=== PATIENT | female | born 1995 | race Caucasian/White ===

== ENCOUNTER 2018-01-03 21:03 | Inpatient (IN) ==
[2018-01-03 21:30] LABS: Bilirubin,Urine Negative (Negative); Blood,Urine Large (Negative); Clarity,Urine Cloudy (Clear); Color,Urine Yellow (Yellow); Glucose,Urine (UA) Normal (Normal); Ketones,Urine Negative (Negative); Leukocyte Esterase,Urine Large (Negative); Nitrite,Urine Positive (Negative); Protein,Urine 30 mg/dL (Neg-Trace); Urobilinogen,Urine Normal (Normal)
[2018-01-03 21:32] LABS: Bacteria,Urine Many per hpf (None-Few); Hyaline Casts,Urine Few per lpf (None-Few); Squamous Epithelial Cell,Urine Many per lpf (None-Few); WBC,Urine TNTC per hpf (0-3)
[2018-01-03 21:47] LABS: Mucus,Urine Moderate (Few); RBC,Urine 50-100 per hpf (0-3); Yeast,Urine Moderate per hpf (None Seen)
[2018-01-03] MEDS ORDERED: 0.9 % Sodium Chloride 1,000 ML IVC ONE (22:05)
[2018-01-03 22:13] LABS: Basophils % 0.3 %; Eosinophils % 0.1 %; Hematocrit 40.3 % (35.3-44.9); Hemoglobin 13.2 g/dL (11.5-15.4); Immature Granulocytes % 0.4 % (0-4); Lymphocytes # 0.9 K/mcL (0.6-4.6); Lymphocytes % 6.3 %; Mean Corpuscular HGB Conc 32.8 g/dL (31.6-35.5); Mean Corpuscular Hemoglobin 28.3 pg (28.0-33.3); Mean Corpuscular Volume 86.5 fL (83.0-100.0); Mean Platelet Volume 9.5 fL (9.4-12.4); Monocytes # 1.2 K/mcL (0.0-1.3); Monocytes % 8.3 %; Neutrophils # 11.8 K/mcL (1.6-8.9); Platelet Count 288 K/mcL (140-400); Red Blood Count 4.66 M/mcL (3.82-4.97); Red Cell Distribution Width 12.7 % (11.5-14.5); Segmented Neutrophils % 84.6 %
--- NOTE | 2018-01-03 22:25 | Emergency Department Note ---
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 She also has history of UTIs and thought that it was a bladder infection; therefore , she did not seek medical advice. She comes in today due to worsening pain, fever, nausea without vomiting, chills. Pain is sharp in nature and radiates to the back. She describes it as "throbbing". Last dose of ibuprofen she took was last night and she woke up feeling feverish. Current pain is 10/10, constant. Admits to dizziness due to pain. Denies CP, SOB, diarrhea, constipation. LMP started today. +dysuria, hematuria. Pt Subjective Complaint: Left sided flank pain Pain Scale: 10 - Related Data Previous Rx's Medication Instructions Recorded Hydrocodone/Acetaminophen [[place] 1 - 2 each PO Q6H PRN #15 tablet 08/17/15 5-325 Tablet] Ibuprofen [Motrin] 600 mg PO Q8HR PRN #20 tab 08/17/15 Nitrofurantoin (BID) [Macrobid] 100 mg PO BID #7 capsule 09/12/15 Ciprofloxacin HCl [Cipro] 500 mg PO BID #14 tab 10/04/15 Acetaminophen [Tylenol] 650 mg PO Q6HR #20 tablet 11/05/15 Albuterol Sulfate [Albuterol 1 puff IH Q6HR PRN #1 hfa.aer.ad 03/27/16 Inhaler] Azithromycin [Azithromycin 6-Tab 250 mg PO DAILY #6 tab 03/27/16 Pack] Loratadine/Pseudophed (12 HR) 1 each PO BID #10 tab.er.12h 03/27/16 [Claritin D (12HR)] predniSONE [Prednisone] 40 mg PO DAILY 5 Days tablet 03/27/16 Ciprofloxacin [Cipro] 500 mg PO BID 7 Days tablet 04/23/16 Hydrocodone/Acetaminophen [[place] 1 tab PO Q6H PRN #8 tab 04/23/16 5-325 Tablet] Albuterol Sulfate [Albuterol 2 puff IH Q6HR PRN #1 hfa.aer.ad 07/06/16 Inhaler] predniSONE [Prednisone] 50 mg PO DAILY #4 tablet 07/06/16 Ibuprofen 800 mg PO Q8H #30 tablet 07/16/16 Ondansetron ODT [Zofran ODT] 4 mg PO Q6HR #20 tab.rapdis 07/16/16 Naproxen [Naprosyn] 500 mg PO BID PRN #20 tablet 08/06/16 Ibuprofen [Motrin] 800 mg PO Q8HR PRN #20 tablet 08/24/16 Ibuprofen 800 mg PO Q8H PRN #15 tablet 10/30/16 Ciprofloxacin [Cipro] 500 mg PO BID 7 Days tablet 01/13/17 Ondansetron ODT [Zofran ODT] 4 mg SL Q6HR #10 tab.rapdis 01/13/17 Phenazopyridine [Pyridium] 100 mg PO TID 2 Days tablet 01/13/17 Azithromycin [Azithromycin 6-Tab 250 mg PO PER PKG DI #6 tab 02/12/17 Pack] Loratadine/Pseudophed (12 HR) 1 each PO ONCE #5 tab.er.12h 02/12/17 [Claritin D (12HR)] Ibuprofen [Motrin] 600 mg PO Q8HR PRN #20 tab 07/24/17 Allergies Allergy/AdvReac Type Severity Reaction Status Date / Time cephalexin [From Keflex] Allergy Hives Verified 01/03/18 21:09 Constitutional: Reports: as per HPI. Denies: fever, chills, weakness, weight change Eyes: Reports: as per HPI. Denies: eye pain, eye discharge, vision change ENT ED: Denies: ear pain, throat pain, dental pain, hearing loss, epistaxis, congestion, dysphagia Cardiovascular: Reports: as per HPI. Denies: chest pain, palpitations, dyspnea on exertion, edema, syncope Respiratory: Reports: as per HPI. Denies: cough, dyspnea, wheezes, hemoptysis, stridor Gastrointestinal: Reports: as per HPI. Denies: abdominal pain, nausea, vomiting , diarrhea, constipation, hematemesis, melena, hematochezia Genitourinary: Reports: as per HPI, dysuria, hematuria. Denies: discharge Musculoskeletal: Reports: back pain. Denies: neck pain, arthralgia, myalgia Integumentary: Denies: rash, abrasion, lesions Neurological: Denies: headache, weakness, numbness, paresthesias, confusion, abnormal gait, vertigo Psychiatric: Denies: anxiety, depression, suicidal thoughts, homicidal thoughts , auditory hallucinations, visual hallucinations Endocrine: Denies: fatigue Hematological/Lymphatic: Denies: easy bleeding, easy bruising Allergic/Immunologic: Denies: facial swelling, urticaria Past Medical History - Past Medical History Medical history: Reports: asthma, migraine Surgical history: Reports: other Psychiatric history: Reports: anxiety, depression DIRECTOR [employer]AC[employer] history: Reports: no DIRECTOR [employer] history - Social History Smoking Status: Current every day smoker Smokeless Tobacco Status: No Alcohol use: Reports: none Drug use: Reports: none Physical Exam - General Limitations: no limitations General appearance: alert - Head Head exam: atraumatic, normocephalic, normal inspection - Eye Eye exam: Present: normal appearance, PERRL, EOMI - Expanded Eye Exam Pupils: Left: reactive - ENT ENT exam: normal exam, normal oropharynx, mucous membranes moist - Expanded ENT Exam External ear exam: Present: normal external inspection Mouth exam: Present: normal external inspection Teeth exam: Present: normal inspection Throat exam: Present: normal inspection - Neck Neck exam: Present: normal inspection, full ROM, trachea midline - Chest Chest inspection: Present: normal inspection, symmetric chest wall rise - Respiratory Respiratory exam: Present: normal lung sounds bilaterally - Cardiovascular Cardiovascular exam: Present: regular rate, normal rhythm, normal heart sounds - Abdominal Exam Abdominal exam: Present: soft, Non-Tender. Absent: tenderness, distention, guarding, rebound, rigidity - Extremities Exam Extremities exam: Present: normal inspection, full ROM. Absent: tenderness, pedal edema - Expanded Upper Extremity Exam Shoulder exam: Present: normal inspection, full ROM Arm exam: Present: normal inspection, full ROM Elbow exam: Present: normal inspection, full ROM Forearm/Wrist exam: Present: normal inspection, full ROM Hand exam: Present: normal inspection, full ROM Vascular exam: Normal: capillary refill, radial pulse - Expanded Lower Extremity Exam Hip/Pelvis exam: Present: normal inspection, full ROM Upper leg exam: Present: normal inspection, full ROM Knee exam: Present: normal inspection, full ROM Lower leg exam: Present: normal inspection, full ROM Ankle exam: Present: normal inspection, full ROM Foot/toe exam: Present: normal inspection, full ROM Neurovascular/Tendon exam: Absent: motor deficit, sensory deficit, tendon deficit - Back Exam Back exam: Present: CVA tenderness (L), paraspinal tenderness. Absent: tenderness - Neurological Exam Neurological exam: Present: alert, oriented X3 - Expanded Neurological Exam Patient oriented to: Present: person, place, time Coma Scale Eye Opening: Spontaneous Coma Scale Motor Response: Obeys Commands Coma Scale Verbal Response: Oriented Coma Scale Total: 15 - Psychiatric Psychiatric exam: Present: normal affect, normal mood - Skin Skin exam: Present: warm, dry, intact, normal color Course Course Narrative: CBC demonstrates WBC = 13.9. Patient also has fever 100.2. CT abd/pelvis w/o contrast shows fat stranding and lymph node enlargement concerning for pyelonephritis. UA + blood, nitrites, leukocyte esterase, Pending UCx. Start Ibuprofen for fever, Levaquin for pyelo, morphine for pain. Will admit to inpatient service for pyelonephrits (L). Hospitalist notified and accepted. Vital Signs Temperature 100.2 F H 01/03/18 21:06 Pulse Rate 115 01/03/18 21:06 Respiratory Rate 16 01/03/18 21:06 Blood Pressure 133/79 01/03/18 21:06 O2 Sat by Pulse Oximetry 97 01/03/18 21:06 Temperature 100.2 F H 01/03/18 21:06 Pulse Rate 115 01/03/18 21:06 Respiratory Rate 16 01/03/18 21:06 Blood Pressure 133/79 01/03/18 21:06 O2 Sat by Pulse Oximetry 97 01/03/18 21:06 Oxygen Delivery Oxygen Delivery Room Air Medical Decision Making - Medical Records Medical records reviewed: Yes I reviewed the patient's medical records. - Lab Data Lab results reviewed: Yes I reviewed the patient's lab results. Result diagrams: 01/03/18 21:58 Lab Results 01/03/18 01/03/18 01/03/18 Range/Units 20:10 20:10 21:58 WBC 13.9 H (4.3-11.1) K/mcL RBC 4.66 (3.82-4.97) M/mcL Hgb 13.2 (11.5-15.4) g/dL Hct 40.3 (35.3-44.9) % MCV 86.5 (83.0-100.0) fL MCH 28.3 (28.0-33.3) pg MCHC 32.8 (31.6-35.5) g/dL RDW 12.7 (11.5-14.5) % Plt Count 288 (140-400) K/mcL MPV 9.5 (9.4-12.4) fL Immature Gran % 0.4 (0-4) % Seg Neutrophils % 84.6 % Lymphocytes % 6.3 % Monocytes % 8.3 % Eosinophils % 0.1 % Basophils % 0.3 % Neutrophils # 11.8 H (1.6-8.9) K/mcL Lymphocytes # 0.9 (0.6-4.6) K/mcL Monocytes # 1.2 (0.0-1.3) K/mcL Eosinophils # 0.0 (0.0-0.6) K/mcL Basophils # 0.0 (0.0-0.2) K/mcL Urine Color Yellow (Yellow) Urine Clarity Cloudy A (Clear) Urine pH 6.0 (5.0-8.0) pH Units Ur Specific [place] 1.020 (1.010-1.025) Urine Protein 30 H (Neg-Trace) mg/dL Urine Glucose (UA) Normal (Normal) mg/dL Urine Ketones Negative (Negative) mg/dL Urine Blood Large H (Negative) Urine Nitrite Positive A (Negative) Urine Bilirubin Negative (Negative) Urine Urobilinogen Normal (Normal) mg/dL Ur Leukocyte Esterase Large H (Negative) Urine Microscopic RBC 50-100 H (0-3) per hpf Urine Microscopic WBC TNTC H (0-3) per hpf Ur Squamous Epith Cells Many H (None-Few) per lpf Urine Bacteria Many H (None-Few) per hpf Hyaline Casts Few (None-Few) per lpf Urine Mucus Moderate H (Few) Urine Yeast Moderate H (None Seen) per hpf Ur Culture Indicated? NO. A (NO) Urine Test Negative (Negative) - Radiology Data Radiology results reviewed: Yes I reviewed the patient's radiology results.
[2018-01-03 22:31] LABS: Alanine Aminotransferase 11 Units/L (7-52); Albumin 4.1 g/dL (3.5-5.7); Albumin/Globulin Ratio 1.3 (1.1-2.2); Alkaline Phosphatase 88 Units/L (34-104); Aspartate Amino Transferase 15 Units/L (13-39); BUN/Creatinine Ratio 13 (6-26); Bilirubin,Direct 0.2 mg/dL (0.0-0.2); Bilirubin,Indirect 0.2 mg/dL (0.0-1.2); Bilirubin,Total 0.4 mg/dL (0.3-1.0); Blood Urea Nitrogen 13 mg/dL (6-20); Calcium 9.1 mg/dL (8.6-10.3); Carbon Dioxide 23 mEq/L (23-29); Chloride 103 mEq/L (98-107); Globulin 3.1 g/dL (2.4-3.5); Glucose 107 mg/dL (70-105); Lipase 12 Units/L (11-82); Osmolality,Calculated 281 (280-300); Sodium 135 mEq/L (136-145); Total Protein 7.2 g/dL (6.4-8.9); eGFR For African Americans > 60 (> 60); eGFR For Non-African Americans > 60 (> 60)
[2018-01-03] MEDS ORDERED: Levofloxacin 750 MG/150 ML 750 MG/150 ML BAG IVPB ONE (23:13)
--- NOTE | 2018-01-03 23:15 | Emergency Department Note ---
START Narrative - START START: I examined this patient and my medical decision-making was reviewed with the Resident Physician. I agree with the documented findings, disposition and treatment plan as described except to the extent set forth below. 22-year-old female presents to the emergency room with left lower quadrant abdominal pain and some flank pain. Patient has evidence of pyelonephritis via lab work as well as urinalysis and CAT scan. Patient feels that she needs to be admitted as she does not want to eat or drink much and fears that she will be unable to tolerate her oral antibiotics. IV fluids, IV Levaquin. Admission.
[2018-01-03] MEDS ORDERED: *HR* Morphine 2 MG/ML SYRINGE IVP ONE (23:16)
[2018-01-03] MEDS ORDERED: Ibuprofen 800 MG TABLET PO ONE (23:24)
[2018-01-03] MEDS ORDERED: Naloxone 0.4 MG/ML INJ IVP PRN (23:45)
[2018-01-03] MEDS ORDERED: Ondansetron 4 MG/2 ML VIAL IVP PRN (23:50)
--- NOTE | 2018-01-03 23:55 | Internal Med History&Physical ---
Date of Encounter: 01/03/18 Time of Encounter: 23:15 Internal Medicine - H&P: HPI Chief complaint: Left flank pain Admitted From: Home Plans for Post Hospital Care: Home History of present illness: Ms. Castellano is a 22 year old female present to ER for left-sided flank pain. Past medical history is significant for recurrent UTI, asthma. Patient has right-sided flank pain started the from 3 days ago. Patient also complaining of fever with temperature 100.4. Patient has nausea but no vomiting. Patient has poor intake. Patient denies dysuria, burning, or increased the frequency. In the emergency room, urine analysis shows UTI. Abdominal CT has been done, which shows left side pyelonephritis, without hydronephrosis or hydroureter. Patient was started with Levaquin IV and admitted for further management. Past Med Surg Social Fam HX - Past Medical History Medical history: asthma, migraine Additional medical history: kidney reflex Psychiatric history: anxiety, depression - Past Surgical History Surgical History: other Additional surgical history: kidney surgery - Social History Smoking Status: Current every day smoker Smokeless Tobacco Status: No Alcohol use: none Drug use: none - Family History Mother History Unknown: Yes Internal Medicine - H&P: Meds Hydrocodone/Acetaminophen [[place] 5-325 Tablet] 1 - 2 each PO Q6H PRN #15 tablet 08/17/15 [Rx] Ibuprofen [Motrin] 600 mg PO Q8HR PRN #20 tab 08/17/15 [Rx] Nitrofurantoin (BID) [Macrobid] 100 mg PO BID #7 capsule 09/12/15 [Rx] Ciprofloxacin HCl [Cipro] 500 mg PO BID #14 tab 10/04/15 [Rx] Acetaminophen [Tylenol] 650 mg PO Q6HR #20 tablet 11/05/15 [Rx] Albuterol Sulfate [Albuterol Inhaler] 1 puff IH Q6HR PRN #1 hfa.aer.ad 03/27/16 [Rx] Azithromycin [Azithromycin 6-Tab Pack] 250 mg PO DAILY #6 tab 03/27/16 [Rx] Loratadine/Pseudophed (12 HR) [Claritin D (12HR)] 1 each PO BID #10 tab.er.12h 03/27/16 [Rx] predniSONE [Prednisone] 40 mg PO DAILY 5 Days tablet 03/27/16 [Rx] Ciprofloxacin [Cipro] 500 mg PO BID 7 Days tablet 04/23/16 [Rx] Hydrocodone/Acetaminophen [[place] 5-325 Tablet] 1 tab PO Q6H PRN #8 tab 04/23/16 [Rx] Albuterol Sulfate [Albuterol Inhaler] 2 puff IH Q6HR PRN #1 hfa.aer.ad 07/06/16 [Rx] predniSONE [Prednisone] 50 mg PO DAILY #4 tablet 07/06/16 [Rx] Ibuprofen 800 mg PO Q8H #30 tablet 07/16/16 [Rx] Ondansetron ODT [Zofran ODT] 4 mg PO Q6HR #20 tab.rapdis 07/16/16 [Rx] Naproxen [Naprosyn] 500 mg PO BID PRN #20 tablet 08/06/16 [Rx] Ibuprofen [Motrin] 800 mg PO Q8HR PRN #20 tablet 08/24/16 [Rx] Ibuprofen 800 mg PO Q8H PRN #15 tablet 10/30/16 [Rx] Ciprofloxacin [Cipro] 500 mg PO BID 7 Days tablet 01/13/17 [Rx] Ondansetron ODT [Zofran ODT] 4 mg SL Q6HR #10 tab.rapdis 01/13/17 [Rx] Phenazopyridine [Pyridium] 100 mg PO TID 2 Days tablet 01/13/17 [Rx] Azithromycin [Azithromycin 6-Tab Pack] 250 mg PO PER PKG DI #6 tab 02/12/17 [Rx] Loratadine/Pseudophed (12 HR) [Claritin D (12HR)] 1 each PO ONCE #5 tab.er.12h 02/12/17 [Rx] Ibuprofen [Motrin] 600 mg PO Q8HR PRN #20 tab 07/24/17 [Rx] 3 Allergy/AdvReac Type Severity Reaction Status Date / Time cephalexin [From Keflex] Allergy Hives Verified 01/03/18 21:09 All Systems PM: A 10-system review of systems was performed and is negative for pertinent findings except as documented above in the HPI. - Constitutional Vitals: Temp Pulse Resp BP Pulse Ox 100.2 F H 115 16 133/79 97 01/03/18 21:06 01/03/18 21:06 01/03/18 21:06 01/03/18 21:06 01/03/18 21:06 General appearance: Present: A&O X 3, no acute distress, answers questions appropriately - Head Head exam: Present: atraumatic, normocephalic - Eye Eye exam: Present: PERRL, conjuntiva pink, sclera anicteric Pupils: Present: PERRL - Neck Neck exam general surgery: Present: supple, trachea midline. Absent: lymphadenopathy - Respiratory Respiratory exam: Present: CTAB. Absent: accessory muscle use, rales, rhonchi, wheezes - Cardiovascular Cardiovascular exam: Present: RRR, +S1, +S2. Absent: diastolic murmur, gallop, rubs, systolic murmur - GI/Abdominal GI/Abdominal exam: Present: normal bowel sounds, soft, no peritoneal signs. Absent: distended, tenderness Additional comments: CVAT positive on left side - Extremities Exam Extremities exam: Present: warm, radial pulses palpable and symmetrical. Absent : calf tenderness, cyanotic, pedal edema - Neurological Exam Neurological exam: Present: CN II-XII intact, oriented X3, no focal deficits. Absent: pronater drift, facial droop, speech deficit - Skin Skin exam: Present: dry, intact Internal Med - H&P Results - Labs CBC & Chem 7: 01/03/18 21:58 01/03/18 21:58 Labs: Short CBC 01/03/18 Range/Units 21:58 WBC 13.9 H (4.3-11.1) K/mcL Hgb 13.2 (11.5-15.4) g/dL Hct 40.3 (35.3-44.9) % Plt Count 288 (140-400) K/mcL Neutrophils # 11.8 H (1.6-8.9) K/mcL BMP 01/03/18 21:58 Sodium 135 L Potassium 4.0 Chloride 103 Carbon Dioxide 23 BUN 13 Creatinine 1.01 Glucose 107 H Calcium 9.1 Liver Function 01/03/18 Range/Units 21:58 Total Bilirubin 0.4 (0.3-1.0) mg/dL Direct Bilirubin 0.2 (0.0-0.2) mg/dL AST 15 (13-39) Units/L ALT 11 (7-52) Units/L Alkaline Phosphatase 88 (34-104) Units/L Albumin 4.1 (3.5-5.7) g/dL Urine 01/03/18 Range/Units 20:10 Urine Color Yellow (Yellow) Urine Clarity Cloudy A (Clear) Urine pH 6.0 (5.0-8.0) pH Units Ur Specific [place] 1.020 (1.010-1.025) Urine Protein 30 H (Neg-Trace) mg/dL Urine Glucose (UA) Normal (Normal) mg/dL - Impressions ITS Impressions Abdomen/Pelvis CT 01/03/18 22:04 IMPRESSION: Fat stranding surrounding the left kidney in the left ureter, concerning for pyelonephritis/ pyelitis. Correlation with urinalysis is recommended. Mildly enlarged retroperitoneal lymph nodes, which have increased in size when compared to the previous exam, presumably reactive. D/ / Juanito Johnson MD / Juanito Johnson MD Interpreting Provider: Juanito Johnson MD - Assessment and plan (1) Sepsis Current Visit: Yes Status: Acute Assessment and plan: Patient meets sepsis criteria with leukocytosis and fever. Infection source is UTI and pyelonephritis. - Continue IV fluid - Continue IV antibiotics - Follow up urine culture Qualifiers: Sepsis type: Escherichia coli Qualified Code(s): A41.51 - Sepsis due to Escherichia coli [E. coli] (2) Asthma Current Visit: Yes Status: Acute Assessment and plan: Stable, no wheezing. Continue albuterol inhaler when necessary Qualifiers: Asthma severity: mild Asthma persistence: intermittent Asthma complication type: uncomplicated Qualified Code(s): J45.20 - Mild intermittent asthma, uncomplicated (3) DVT prophylaxis Current Visit: Yes Status: Acute Assessment and plan: Patient is young and ambulating well, no anticoagulation placed. (4) Pyelonephritis Current Visit: Yes Status: Acute Assessment and plan: Patient has history of ureteral reflex S/P surgery during childhood. Has recurrence UTI. Previous urine culture result is reviewed. - Continue Levaquin IV per previous urine culture sensitivity - Continue IV fluid - test negative - Time Spent With Patient Total time spent is greater than 50% in coordination of care (as documented) at patient's floor/unit and/or counseling patient: 40 minutes Greater than 35 minutes
[2018-01-04] MEDS: Nicotine 21 MG PATCH.TD24 TD SCH ×2 (00:59→09:21)
[2018-01-04] MEDS: Acetaminophen 325 MG TABLET PO PRN ×2 (01:02→09:20)
[2018-01-04] MEDS: 0.9 % Sodium Chloride 1,000 ML IVC SCH ×2 (02:52→14:00)
[2018-01-04] MEDS: *HR* HYDROcodone/Acet 5/325 mg TABLET PO PRN ×4 (04:30→22:34)
[2018-01-04 06:02] LABS: Basophils % 0.3 %; Eosinophils % 0.1 %; Hematocrit 34.9 % (35.3-44.9); Immature Granulocytes % 0.5 % (0-4); Lymphocytes # 1.6 K/mcL (0.6-4.6); Lymphocytes % 10.8 %; Mean Corpuscular Hemoglobin 27.8 pg (28.0-33.3); Mean Corpuscular Volume 84.5 fL (83.0-100.0); Mean Platelet Volume 10.5 fL (9.4-12.4); Monocytes # 1.7 K/mcL (0.0-1.3); Monocytes % 12.1 %; Platelet Count 245 K/mcL (140-400); Red Blood Count 4.13 M/mcL (3.82-4.97); Red Cell Distribution Width 12.8 % (11.5-14.5); Segmented Neutrophils % 76.2 %
[2018-01-04 06:04] LABS: Hemoglobin 11.5 g/dL (11.5-15.4)
[2018-01-04 06:45] LABS: Platelet Estimate Normal (Normal)
[2018-01-04 06:58] LABS: BUN/Creatinine Ratio 14 (6-26); Blood Urea Nitrogen 11 mg/dL (6-20); Calcium 8.3 mg/dL (8.6-10.3); Carbon Dioxide 14 mEq/L (23-29); Chloride 106 mEq/L (98-107); Glucose 84 mg/dL (70-105); Osmolality,Calculated 279 (280-300); Potassium 3.9 mEq/L (3.5-5.1); Sodium 135 mEq/L (136-145); eGFR For African Americans > 60 (> 60); eGFR For Non-African Americans > 60 (> 60)
--- NOTE | 2018-01-04 11:55 | Internal Med Progress Note ---
Date of Encounter: 01/04/18 Time of Encounter: 11:52 - Assessment and plan (1) Sepsis Current Visit: Yes Status: Acute Assessment and plan: from pyelonephritis, resolved, BS is stable Qualifiers: Sepsis type: Escherichia coli Qualified Code(s): A41.51 - Sepsis due to Escherichia coli [E. coli] (2) Pyelonephritis Current Visit: Yes Status: Acute Assessment and plan: contine IV levaquin, pending culture (3) Morbid obesity Current Visit: Yes Status: Acute Assessment and plan: life style modification (4) Asthma Current Visit: Yes Status: Chronic Assessment and plan: stable Qualifiers: Asthma severity: mild Asthma persistence: intermittent Asthma complication type: uncomplicated Qualified Code(s): J45.20 - Mild intermittent asthma, uncomplicated (5) DVT prophylaxis Current Visit: Yes Status: Acute Assessment and plan: heparin SC - Time Spent With Patient Total time spent is greater than 50% in coordination of care (as documented) at patient's floor/unit and/or counseling patient: 25 - 35 minutes - Subjective Interval history: Ms. Castellano is a 22 year old female present to ER for left-sided flank pain. Past medical history is significant for recurrent UTI, asthma. Patient has right-sided flank pain started the from 3 days ago. Patient also complaining of fever with temperature 100.4. Patient has nausea but no vomiting. Patient has poor intake. Patient denies dysuria, burning, or increased the frequency. In the emergency room, urine analysis shows UTI. Abdominal CT has been done, which shows left side pyelonephritis, without hydronephrosis or hydroureter. Patient was started with Levaquin IV and admitted for further management. asad is doing well, afebrile, feels better, pain improved, denies nausea. I called lab for urine culture, is in process Patient is allergic to cephalexin but tolerated Penicillin before conitnue levaquin, pending urine culture - Constitutional Vitals: Temp Pulse Resp BP Pulse Ox 98.6 F 99 16 114/77 97 01/04/18 10:51 01/04/18 10:51 01/04/18 10:51 01/04/18 10:51 01/04/18 10:51 General appearance: Present: A&O X 3, no acute distress, answers questions appropriately Exam: CONSTITUTIONAL: patient appears as an age appropriate female in no acute distress. EYES Clear sclerae, bilateral pupils are equal, reactive to light. EMOI. RESPIRATORY: No accessory muscle use, bilateral clear to auscultation, no wheezing, no crackles/rales. CARDIOVASCULAR: Regular heart rate, normal S1 and S2, no murmurs GASTROINTESTINAL: bowel sounds present, soft, left CVA tenderness. MUSCULOSKELETAL: Joints in normal range of motion, no clubbing, no edema, no cyanosis. Bilateral peripheral pulses 2+. NEUROLOGIC: CN II to XII are grossly intact, no focal neurological deficit. Internal Medicine: Result - Labs CBC & Chem 7: 01/04/18 04:17 01/04/18 04:17 Labs: Short CBC 01/04/18 Range/Units 04:17 WBC 14.4 H (4.3-11.1) K/mcL Hgb 11.5 D (11.5-15.4) g/dL Hct 34.9 L (35.3-44.9) % Plt Count 245 (140-400) K/mcL Neutrophils # 11.0 H (1.6-8.9) K/mcL BMP 01/04/18 04:17 Sodium 135 L Potassium 3.9 Chloride 106 Carbon Dioxide 14 L BUN 11 Creatinine 0.81 Glucose 84 Calcium 8.3 L Consult Discharge Plan - Plan Referrals: Clint Mcgovern DO [Primary Care Provider] -
[2018-01-04] MEDS: *HR* Heparin 5,000 UNIT/ML VIAL SQ SCH ×2 (14:53→19:40)
[2018-01-04] MEDS: Levofloxacin 750 MG/150 ML 750 MG/150 ML BAG IVPB SCH (17:12)
[2018-01-05 04:24] LABS: Basophils % 0.2 %; Eosinophils # 0.1 K/mcL (0.0-0.6); Eosinophils % 0.9 %; Hematocrit 34.3 % (35.3-44.9); Hemoglobin 11.1 g/dL (11.5-15.4); Immature Granulocytes % 0.3 % (0-4); Lymphocytes # 1.9 K/mcL (0.6-4.6); Lymphocytes % 16.4 %; Mean Corpuscular HGB Conc 32.4 g/dL (31.6-35.5); Mean Corpuscular Hemoglobin 28.1 pg (28.0-33.3); Mean Corpuscular Volume 86.8 fL (83.0-100.0); Mean Platelet Volume 9.5 fL (9.4-12.4); Monocytes # 1.9 K/mcL (0.0-1.3); Neutrophils # 7.8 K/mcL (1.6-8.9); Platelet Count 233 K/mcL (140-400); Red Blood Count 3.95 M/mcL (3.82-4.97); Red Cell Distribution Width 12.7 % (11.5-14.5); Segmented Neutrophils % 66.2 %
[2018-01-05 04:36] LABS: BUN/Creatinine Ratio 12 (6-26); Blood Urea Nitrogen 8 mg/dL (6-20); Calcium 8.4 mg/dL (8.6-10.3); Carbon Dioxide 21 mEq/L (23-29); Chloride 110 mEq/L (98-107); Glucose 116 mg/dL (70-105); Magnesium 1.9 mg/dL (1.6-2.6); Osmolality,Calculated 283 (280-300); Potassium 3.4 mEq/L (3.5-5.1); Sodium 137 mEq/L (136-145); eGFR For African Americans > 60 (> 60); eGFR For Non-African Americans > 60 (> 60)
[2018-01-05] MEDS: *HR* Heparin 5,000 UNIT/ML VIAL SQ SCH ×3 (05:00→21:56)
[2018-01-05] MEDS: *HR* HYDROcodone/Acet 5/325 mg TABLET PO PRN ×4 (05:01→23:03)
[2018-01-05] MEDS: Nicotine 21 MG PATCH.TD24 TD SCH (07:19)
--- NOTE | 2018-01-05 10:22 | Internal Med Progress Note ---
Date of Encounter: 01/05/18 Time of Encounter: 10:20 - Assessment and plan (1) Sepsis Current Visit: Yes Status: Acute Assessment and plan: resolved Qualifiers: Sepsis type: Escherichia coli Qualified Code(s): A41.51 - Sepsis due to Escherichia coli [E. coli] (2) Pyelonephritis Current Visit: Yes Status: Acute Assessment and plan: contineu iV levaquin, pending urine culture, WBC trending down (3) Morbid obesity Current Visit: Yes Status: Chronic Assessment and plan: life style modification (4) Asthma Current Visit: Yes Status: Chronic Assessment and plan: stable no exacerbation Qualifiers: Asthma severity: mild Asthma persistence: intermittent Asthma complication type: uncomplicated Qualified Code(s): J45.20 - Mild intermittent asthma, uncomplicated (5) DVT prophylaxis Current Visit: Yes Status: Acute Assessment and plan: heparin SC - Time Spent With Patient Total time spent is greater than 50% in coordination of care (as documented) at patient's floor/unit and/or counseling patient: 25 - 35 minutes - Subjective Interval history: Ms. Castellano is a 22 year old female present to ER for left-sided flank pain. Past medical history is significant for recurrent UTI, asthma. Patient has right-sided flank pain started the from 3 days ago. Patient also complaining of fever with temperature 100.4. Patient has nausea but no vomiting. Patient has poor intake. Patient denies dysuria, burning, or increased the frequency. In the emergency room, urine analysis shows UTI. Abdominal CT has been done, which shows left side pyelonephritis, without hydronephrosis or hydroureter. Patient was started with Levaquin IV and admitted for further management. asad is doing well, afebrile, feels better, pain improved, denies nausea. she still has night sweats urine culture is pending in process Patient is allergic to cephalexin but tolerated Penicillin before conitnue levaquin, possible discharge tomorrow - Constitutional Vitals: Temp Pulse Resp BP Pulse Ox 98.1 F 73 17 96/63 99 01/05/18 07:15 01/05/18 07:15 01/05/18 07:15 01/05/18 07:15 01/05/18 07:15 General appearance: Present: A&O X 3, no acute distress, answers questions appropriately Exam: CONSTITUTIONAL: patient appears as an age appropriate female in no acute distress. EYES Clear sclerae, bilateral pupils are equal, reactive to light. EMOI. RESPIRATORY: No accessory muscle use, bilateral clear to auscultation, no wheezing, no crackles/rales. CARDIOVASCULAR: Regular heart rate, normal S1 and S2, no murmurs GASTROINTESTINAL: bowel sounds present, soft, Left CVA tenderness. MUSCULOSKELETAL: Joints in normal range of motion, no clubbing, no edema, no cyanosis. Bilateral peripheral pulses 2+. NEUROLOGIC: CN II to XII are grossly intact, no focal neurological deficit. Internal Medicine: Result - Labs CBC & Chem 7: 01/05/18 04:00 01/05/18 04:00 Labs: Short CBC 01/05/18 Range/Units 04:00 WBC 11.7 H (4.3-11.1) K/mcL Hgb 11.1 L (11.5-15.4) g/dL Hct 34.3 L (35.3-44.9) % Plt Count 233 (140-400) K/mcL Neutrophils # 7.8 (1.6-8.9) K/mcL BMP 01/05/18 04:00 Sodium 137 Potassium 3.4 L Chloride 110 H Carbon Dioxide 21 L BUN 8 Creatinine 0.66 Glucose 116 H Calcium 8.4 L Consult Discharge Plan - Plan Referrals: Clint Mcgovern DO [Primary Care Provider] -
[2018-01-05] MEDS: Levofloxacin 750 MG/150 ML 750 MG/150 ML BAG IVPB SCH (17:37)
[2018-01-05] MEDS ORDERED: traMADol 50 MG TABLET PO ONE (23:40)
[2018-01-06 02:13] LABS: BUN/Creatinine Ratio 13 (6-26); Blood Urea Nitrogen 10 mg/dL (6-20); Calcium 8.7 mg/dL (8.6-10.3); Carbon Dioxide 20 mEq/L (23-29); Chloride 106 mEq/L (98-107); Glucose 145 mg/dL (70-105); Osmolality,Calculated 284 (280-300); Potassium 4.1 mEq/L (3.5-5.1); Sodium 136 mEq/L (136-145); eGFR For African Americans > 60 (> 60); eGFR For Non-African Americans > 60 (> 60)
[2018-01-06] MEDS: *HR* Heparin 5,000 UNIT/ML VIAL SQ SCH (05:02)
[2018-01-06 07:18] LABS: Basophils % 0.5 %; Eosinophils # 0.1 K/mcL (0.0-0.6); Eosinophils % 1.6 %; Hematocrit 35.1 % (35.3-44.9); Hemoglobin 11.8 g/dL (11.5-15.4); Immature Granulocytes % 0.2 % (0-4); Lymphocytes # 2.4 K/mcL (0.6-4.6); Lymphocytes % 27.5 %; Mean Corpuscular HGB Conc 33.6 g/dL (31.6-35.5); Mean Corpuscular Hemoglobin 28.9 pg (28.0-33.3); Mean Corpuscular Volume 85.8 fL (83.0-100.0); Mean Platelet Volume 9.4 fL (9.4-12.4); Monocytes # 1.1 K/mcL (0.0-1.3); Monocytes % 12.1 %; Neutrophils # 5.1 K/mcL (1.6-8.9); Platelet Count 289 K/mcL (140-400); Red Blood Count 4.09 M/mcL (3.82-4.97); Red Cell Distribution Width 12.3 % (11.5-14.5); Segmented Neutrophils % 58.1 %
[2018-01-06] MEDS: *HR* HYDROcodone/Acet 5/325 mg TABLET PO PRN (08:23)
[2018-01-06] MEDS: Nicotine 21 MG PATCH.TD24 TD SCH (08:23)
--- NOTE | 2018-01-06 10:49 | Discharge Summary ---
Date of Encounter: 01/06/18 Time of Encounter: 10:44 - Discharge Diagnosis (1) Sepsis Priority: Secondary Status: Resolved Qualifiers: Sepsis type: Escherichia coli Qualified Code(s): A41.51 - Sepsis due to Escherichia coli [E. coli] (2) Pyelonephritis Priority: Primary Status: Resolved (3) Morbid obesity Priority: Secondary Status: Chronic (4) Asthma Priority: Secondary Status: Chronic Qualifiers: Asthma severity: mild Asthma persistence: intermittent Asthma complication type: uncomplicated Qualified Code(s): J45.20 - Mild intermittent asthma, uncomplicated (5) DVT prophylaxis Priority: Secondary Status: Acute Hospital course: Ms. Castellano is a 22 year old female present to ER for left-sided flank pain. Past medical history is significant for recurrent UTI, asthma. Patient has right-sided flank pain started the from 3 days ago. Patient also complaining of fever with temperature 100.4. Patient has nausea but no vomiting. Patient has poor intake. Patient denies dysuria, burning, or increased the frequency. In the emergency room, urine analysis shows UTI. Abdominal CT has been done, which shows left side pyelonephritis, without hydronephrosis or hydroureter. Patient was started with Levaquin IV and admitted for further management. asad is doing well, afebrile, feels better, pain improved, denies nausea. urine culture growing E coil, pansensitive discharge on cipro to complete 14 days course follow up with PCP Discharge discussed with: patient, family Time spent discussing smoking cessation with patient: more than 10 minutes - Time Spent with Patient Total time spent providing and/or coordinating discharge services: Greater than 30 minutes - Discharge Medications Prescriptions: HYDROcodone/Acet 5/325 mg [[place] 5-325 mg] 1 tab PO Q8HR PRN 3 Days #9 tablet PRN Reason: Moderate Pain Ciprofloxacin [Cipro] 500 mg PO BID 12 Days #24 tablet Home Medications: Ibuprofen [Motrin Ib] 400 mg PO Q8H PRN 01/04/18 [History] Ciprofloxacin [Cipro] 500 mg PO BID 12 Days #24 tablet 01/06/18 [Rx] HYDROcodone/Acet 5/325 mg [[place]on 5-325 mg] 1 tab PO Q8HR PRN 3 Days #9 tablet [Rx] Allergies/Adverse Reactions: 3 Allergy/AdvReac Type Severity Reaction Status Date / Time cephalexin [From Keflex] Allergy Hives Verified 01/04/18 11:13 Date of admission: 01/04/18 00:39 Primary care physician: Tammy Raymond - Constitutional Vitals: Temp Pulse Resp BP Pulse Ox 98.6 F 75 16 112/75 98 01/06/18 06:51 01/06/18 06:51 01/06/18 06:51 01/06/18 06:51 01/06/18 06:51 General appearance: Present: A&O X 3, no acute distress, answers questions appropriately - Patient Status Disposition: Home, Self-Care Condition: Good Overall status at discharge: patient is back to baseline - Discharge Instructions Follow Up With: Clint Mcgovern DO [Primary Care Provider] - - Diet and Activity Diet: advance to your usual diet
[2018-01-06 10:52] VITALS: BP 116/74
== END 2018-01-06 13:25 | disposition home or self-care (01) | DRG 720 ==
LOC: EMEROO 21:03 → 3ANU 21:03 → SUATTDRO 01-04 00:39
PROVIDERS: ADMIT Family Medicine; ATTEND Hospitalist